=== PATIENT | female | born 1970 | race American Indian/Alaskan Native ===

== ENCOUNTER 2016-11-09 11:05 | Emergency (ER) | payer MEDICAID ==
[2016-11-09] MEDS ORDERED: DUONEB *Not for PRN Use IH ONE (18:50)
[2016-11-09] MEDS ORDERED: DELTASONE PO ONE (18:51)
--- NOTE | 2016-11-09 18:51 | Emergency Department Report ---
ED Asthma HPI - General Chief Complaint: Upper Respiratory Infection Stated Complaint: ASTHMA Time Seen by Provider: 11/09/16 18:17 Source: patient Mode of arrival: Ambulatory Limitations: No Limitations - History of Present Illness Initial Comments: 46-year-old female past medical history asthma presents for complaint of running out of her asthma medicines including Henderson cast and Ventolin inhaler. She states she has been wheezing slightly since early this morning. Patient states her last menstrual period was on 10/26 but is concerned she may be and is requesting a test. Patient is awake alert and oriented 3 agitated and is verbally abusive during clinical exam. States that she is upset that she has been waiting for a long time to be evaluated. I reassured the patient that I will do my best to help her however patient is verbally irate. Accompanied by daughter at bedside MD Complaint: "asthma attack", wheezing Severity: mild Context: none known Associated Symptoms: none Treatments Prior to Arrival: inhaled bronchodilator - Related Data Current Asthma Therapy: none Previous Rx's Medication Instructions Recorded Last Taken Type ALBUTEROL Inhaler [ProAir HFA 2 puff IH QID PRN #1 inhalation 11/09/16 Unknown Rx Inhaler] Montelukast [Singulair] 10 mg PO QPM #30 tablet 11/09/16 Unknown Rx predniSONE [Deltasone] 40 mg PO QDAY #10 tab 11/09/16 Unknown Rx ED Review of Systems ROS: Stated complaint: ASTHMA Other details as noted in HPI Constitutional: denies: chills, fever Eyes: denies: eye pain, eye discharge, vision change ENT: denies: ear pain, throat pain Respiratory: denies: cough, shortness of breath, wheezing Cardiovascular: denies: chest pain, palpitations Endocrine: no symptoms reported Gastrointestinal: denies: abdominal pain, nausea, diarrhea Genitourinary: denies: urgency, dysuria, discharge Musculoskeletal: denies: back pain, joint swelling, arthralgia Skin: denies: rash, lesions Neurological: denies: headache, weakness, paresthesias Psychiatric: denies: anxiety, depression Hematological/Lymphatic: denies: easy bleeding, easy bruising ED Past Medical Hx - Past Medical History Hx Asthma: Yes - Surgical History Past Surgical History?: Yes Additional Surgical History: - Social History Smoking Status: Never Smoker Substance Use Type: None - Medications Home Medications: Home Medications Medication Instructions Recorded Confirmed Last Taken Type ALBUTEROL Inhaler [ProAir HFA 2 puff IH QID PRN #1 inhalation 11/09/16 Unknown Rx Inhaler] Montelukast [Singulair] 10 mg PO QPM #30 tablet 11/09/16 Unknown Rx predniSONE [Deltasone] 40 mg PO QDAY #10 tab 11/09/16 Unknown Rx ED Physical Exam - General Limitations: No Limitations General appearance: alert, in no apparent distress - Head Head exam: Present: atraumatic, normocephalic - Eye Eye exam: Present: normal appearance, PERRL, EOMI - ENT ENT exam: Present: mucous membranes moist - Neck Neck exam: Present: normal inspection - Respiratory Respiratory exam: Present: wheezes (mild wheezing right lower lung field). Absent: respiratory distress - Cardiovascular Cardiovascular Exam: Present: regular rate, normal rhythm. Absent: systolic murmur, diastolic murmur, rubs, gallop - GI/Abdominal GI/Abdominal exam: Present: soft, normal bowel sounds - Extremities Exam Extremities exam: Present: normal inspection - Back Exam Back exam: Present: normal inspection - Neurological Exam Neurological exam: Present: alert, oriented X3 - Psychiatric Psychiatric exam: Present: normal affect, normal mood - Skin Skin exam: Present: warm, dry, intact, normal color. Absent: rash ED Course Vital Signs 11/09/16 11:45 Temperature 98 F Pulse Rate 75 Respiratory 22 Rate Blood Pressure 121/76 O2 Sat by Pulse 100 Oximetry ED Medical Decision Making - Medical Decision Making A/P: Asthma exacerbation 1-refill on albuterol inhaler 2-prednisone course 3- test negative 4- follow-up with primary care 5- vital signs normal before discharge, o2 sat 100% Critical care attestation.: If time is entered above; I have spent that time in minutes in the direct care of this critically ill patient, excluding procedure time. ED Disposition Clinical Impression: test negative Asthma Qualifiers: Asthma severity: mild Asthma persistence: intermittent Asthma complication type : with acute exacerbation Qualified Code(s): J45.21 - Mild intermittent asthma with (acute) exacerbation Disposition: DC-01 TO HOME OR SELFCARE Is pt being admited?: No Does the pt Need Aspirin: No Condition: Stable Instructions: Asthma (ED) Prescriptions: ALBUTEROL Inhaler [ProAir HFA Inhaler] 2 puff IH QID PRN #1 inhalation PRN Reason: Shortness Of Breath Montelukast [Singulair] 10 mg PO QPM #30 tablet predniSONE [Deltasone] 40 mg PO QDAY #10 tab Referrals: [facility] [Outside] - 3-5 Days [facility] [Provider Group] - 3-5 Days Forms: Accompanied Note, Work/School Release Form(ED) Time of Disposition: 19:43
[2016-11-09 22:25] VITALS: BP 120/78
== END 2016-11-09 19:48 | disposition home or self-care (01) ==
LOC: ED 11:05
DX: Z32.02 Encounter for pregnancy test, result negative (principal); J45.21 Mild intermittent asthma with (acute) exacerbation
CPT/HCPCS: 81025; 94640; 99283; J7512

== ENCOUNTER 2017-09-08 21:15 | Emergency (ER) | payer MEDICAID, OTHER ==
[2017-09-08 22:11] VITALS: BP 117/67
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
[2017-09-09] MEDS ORDERED: PROVENTIL IH ONE ×2 (00:40→00:41)
== END 2017-09-09 01:20 | disposition left against medical advice (07) ==
LOC: ED 21:15
DX: M54.9 Dorsalgia, unspecified (principal); R51 Headache; Z53.21 Procedure and treatment not carried out due to patient leaving prior to being seen by health care provider
CPT/HCPCS: 70450

== ENCOUNTER 2021-08-26 20:10 | Emergency (ER) | payer SELFPAY ==
[2021-08-26] MEDS ORDERED: ALBUTEROL 2.5 MG/3 ML NEBU IH ONE (20:54)
[2021-08-26] MEDS ORDERED: IPRATROPIUM 0.02% NEBU 2.5 ML IH ONE (20:55)
[2021-08-26] MEDS ORDERED: dexAMETHasone 4 MG/ML VIAL IV ONE (21:01)
[2021-08-26] MEDS ORDERED: ACETAMINOPEN W/CODEINE 120-12MG ORAL LIQD 5 ML PO STA (21:01)
[2021-08-26] MEDS ORDERED: diphenhydrAMINE 50 MG/ML VIAL IV STA (21:01)
--- NOTE | 2021-08-26 21:03 | Emergency Department Report ---
ED Asthma HPI - General Chief Complaint: Adult Asthma Stated Complaint: ASTHMA ATTACK Time Seen by Provider: 08/26/21 21:00 Source: patient Mode of arrival: Ambulatory Limitations: No Limitations - History of Present Illness MD Complaint: "asthma attack", wheezing -: Gradual, days(s) (3) Asthma History: childhood onset Severity: moderate Context: other Associated Symptoms: dry cough, other (aching to abdomin and ribs due to exce ssive cough). denies: chest pain - Related Data Previous Rx's Medication Instructions Recorded Last Taken Type Albuterol Mdi (or & Nicu Only) 2 puff IH QID PRN #1 inhalation 11/09/16 Unknown Rx [ProAir HFA Inhaler] Montelukast [Singulair] 10 mg PO QPM #30 tablet 11/09/16 Unknown Rx predniSONE [Deltasone] 40 mg PO QDAY #10 tab 11/09/16 Unknown Rx Albuterol Mdi (or & Nicu Only) 2 puff IH QID PRN #1 inhalation 08/27/21 Unknown Rx [ProAir HFA Inhaler] Montelukast [Singulair] 10 mg PO QPM #14 tablet 08/27/21 Unknown Rx predniSONE [Deltasone] 50 mg PO QDAY #5 tab 08/27/21 Unknown Rx Allergies Allergy/AdvReac Type Severity Reaction Status Date / Time No Known Allergies Allergy Verified 08/26/21 20:48 ED Review of Systems ROS: Stated complaint: ASTHMA ATTACK Other details as noted in HPI Comment: All other systems reviewed and negative ED Past Medical Hx - Past Medical History Hx Asthma: Yes - Surgical History Additional Surgical History: - Social History Smoking Status: Former Smoker Substance Use Type: None - Medications Home Medications: Home Medications Medication Instructions Recorded Confirmed Last Taken Type Albuterol Mdi (or & Nicu Only) 2 puff IH QID PRN #1 inhalation 11/09/16 Unknown Rx [ProAir HFA Inhaler] Montelukast [Singulair] 10 mg PO QPM #30 tablet 11/09/16 Unknown Rx predniSONE [Deltasone] 40 mg PO QDAY #10 tab 11/09/16 Unknown Rx Albuterol Mdi (or & Nicu Only) 2 puff IH QID PRN #1 inhalation 08/27/21 Unknown Rx [ProAir HFA Inhaler] Montelukast [Singulair] 10 mg PO QPM #14 tablet 08/27/21 Unknown Rx predniSONE [Deltasone] 50 mg PO QDAY #5 tab 08/27/21 Unknown Rx ED Physical Exam - General Limitations: No Limitations General appearance: alert, in distress (mild and tearful) - Head Head exam: Present: atraumatic, normocephalic - Eye Eye exam: Present: normal appearance, PERRL - ENT ENT exam: Present: normal exam, normal orophraynx, mucous membranes moist, TM's normal bilaterally - Neck Neck exam: Present: normal inspection, full ROM - Respiratory Respiratory exam: Present: normal lung sounds bilaterally, wheezes. Absent: respiratory distress, rales, rhonchi, chest wall tenderness, accessory muscle use, decreased breath sounds - Cardiovascular Cardiovascular Exam: Present: regular rate, normal rhythm. Absent: tachycardia, irregular rhythm, systolic murmur, diastolic murmur, rubs, gallop - GI/Abdominal GI/Abdominal exam: Present: soft, normal bowel sounds - Extremities Exam Extremities exam: Present: normal inspection - Back Exam Back exam: Present: normal inspection - Neurological Exam Neurological exam: Present: alert, oriented X3, CN II-XII intact, normal gait - Psychiatric Psychiatric exam: Present: normal affect, normal mood - Skin Skin exam: Present: warm, dry, intact, normal color. Absent: rash ED Course Vital Signs 08/26/21 08/27/21 20:47 01:56 Temperature 98.8 F Pulse Rate 73 71 Respiratory 20 14 Rate Blood Pressure 114/77 123/80 [Left] O2 Sat by Pulse 97 98 Oximetry ED Medical Decision Making - Medical Decision Making No altered mental status, saddle respirations, belly breathing or other signs of impending ventilatory failure. No intubations or recent admissions to the hospital for asthma. Unlikely pneumonia, CHF, COPD, GERD Workup Review include a chest x-ray which was normal she also received steroids and albuterol Therapies: Prednisone 50 mg PO. Albuterol nebulizer Reassessment: Patient improved with albuterol and ipratropium in less than 3 hours. Disposition: Discharge home with return precautions. Advised to follow up with primary care physician within next 24-48 hours. Aside from this acute exacerbation patient has been well controlled on baseline home regimen. Rx short steroid course, albuterol, Singulair, Flovent Critical care attestation.: If time is entered above; I have spent that time in minutes in the direct care of this critically ill patient, excluding procedure time. ED Disposition Clinical Impression: Asthma Disposition: 01 HOME / SELF CARE / HOMELESS Is pt being admited?: No Does the pt Need Aspirin: No Condition: Stable Instructions: Asthma, Adult, Asthma (ED) Prescriptions: predniSONE [Deltasone] 50 mg PO QDAY #5 tab Albuterol Mdi (or & Nicu Only) [ProAir HFA Inhaler] 2 puff IH QID PRN #1 inhalation PRN Reason: Shortness Of Breath Montelukast [Singulair] 10 mg PO QPM #14 tablet Referrals: [facility] [Provider Group] - 3-5 Days
--- NOTE | 2021-08-26 21:39 | XRay Report ---
CHEST 1 VIEW 08/26/2021 8:29 PM INDICATION / CLINICAL INFORMATION: sob and wheezing. COMPARISON: None available. FINDINGS: SUPPORT DEVICES: None. HEART / MEDIASTINUM: No significant abnormality. LUNGS / PLEURA: No significant pulmonary abnormality. No significant pleural effusion. No pneumothora x. ADDITIONAL FINDINGS: No significant additional findings. IMPRESSION: 1. No acute abnormality of the chest. Signer Name: Jori Samuel MD Signed: 08/26/2021 9:35 PM Workstation Name: [email or web address]
[2021-08-27 01:57] VITALS: BP 123/80
== END 2021-08-27 01:57 | disposition home or self-care (01) ==
LOC: ED 20:10
DX: J45.909 Unspecified asthma, uncomplicated (principal); Z98.890 Other specified postprocedural states; Z87.891 Personal history of nicotine dependence
CPT/HCPCS: 71045; 94640; 96374; 99283; J1100; J1200

== ENCOUNTER 2021-08-29 22:55 | Emergency (ER) | payer SELFPAY ==
[2021-08-29 23:09] VITALS: BP 113/72
== END 2021-09-02 09:58 | disposition left against medical advice (07) ==
LOC: ED 22:55
DX: J45.909 Unspecified asthma, uncomplicated (principal); Z53.21 Procedure and treatment not carried out due to patient leaving prior to being seen by health care provider

== ENCOUNTER 2021-10-08 08:08 | Emergency (ER) | payer SELFPAY ==
[2021-10-08] MEDS ORDERED: IPRATROPIUM 0.02% NEBU 2.5 ML IH ONE ×2 (08:37→08:57)
[2021-10-08] MEDS ORDERED: ALBUTEROL 2.5 MG/3 ML NEBU IH ONE (08:37)
[2021-10-08] MEDS ORDERED: methylPREDNISolone Sod Succinate 125 MG/2 ML INJ IM ONE (09:25)
--- NOTE | 2021-10-08 09:50 | XRay Report ---
CHEST 2 VIEWS INDICATION / CLINICAL INFORMATION: Asthma. COMPARISON: 08/26/2021 FINDINGS: SUPPORT DEVICES: None. HEART / MEDIASTINUM: No significant abnormality. LUNGS / PLEURA: No significant pulmonary or pleural abnormality. No pneumothorax. ADDITIONAL FINDINGS: No significant additional findings. IMPRESSION: 1. No acute findings. Signer Name: Darius De La Torre MD Signed: 10/08/2021 9:46 AM Workstation Name: [email or web address]
--- NOTE | 2021-10-08 12:04 | Emergency Department Report ---
ED Asthma HPI - General Chief Complaint: Adult Asthma Stated Complaint: ASTHMA ATTACK Time Seen by Provider: 10/08/21 08:55 Source: patient Mode of arrival: Ambulatory Limitations: No Limitations - History of Present Illness Initial Comments: 51-year-old female with history of asthma presents to the emergency department with asthma attack. Patient reports her symptoms started yesterday afternoon, and has not improved with her albuterol inhaler. Has symptoms associated with shortness of breath, tightness in her chest, and cough. She denies fever c hills, no headache dizziness, no nausea vomiting abdominal pain, no swelling to the extremities, no orthopne. States that her asthma is induced by allergies, she thinks is because of the weather changes. Context: allergen exposure Associated Symptoms: dry cough. denies: fever, chest pain, leg edema, syncope Treatments Prior to Arrival: inhaled bronchodilator - Related Data Current Asthma Therapy: inhaled bronchodilator Previous Rx's Medication Instructions Recorded Last Taken Type Albuterol Mdi (or & Nicu Only) 2 puff IH QID PRN #1 inhalation 11/09/16 Unknown Rx [ProAir HFA Inhaler] Montelukast [Singulair] 10 mg PO QPM #30 tablet 11/09/16 Unknown Rx Albuterol Mdi (or & Nicu Only) 2 puff IH QID PRN #1 inhalation 08/27/21 Unknown Rx [ProAir HFA Inhaler] predniSONE [Deltasone] 50 mg PO QDAY #5 tab 08/27/21 Unknown Rx Codeine Phosphate/Guaifenesin 5 ml PO Q6H PRN #100 10/08/21 Unknown Rx [Guaiatussin AC Liquid] Montelukast [Singulair] 10 mg PO QPM #30 tablet 10/08/21 Unknown Rx predniSONE [Deltasone] 40 mg PO QDAY 5 Days #10 tab 10/08/21 Unknown Rx Allergies Allergy/AdvReac Type Severity Reaction Status Date / Time No Known Allergies Allergy Verified 10/08/21 08:37 ED Review of Systems ROS: Stated complaint: ASTHMA ATTACK Other details as noted in HPI Constitutional: denies: chills, fever ENT: denies: throat pain Respiratory: cough, shortness of breath, wheezing. denies: SOB with exertion Cardiovascular: denies: chest pain, palpitations, dyspnea on exertion, orthopnea, edema, syncope Gastrointestinal: denies: abdominal pain, nausea, vomiting Skin: denies: rash, lesions Neurological: denies: headache, weakness, numbness Psychiatric: denies: anxiety, depression ED Past Medical Hx - Past Medical History Hx Asthma: Yes - Surgical History Additional Surgical History: - Social History Smoking Status: Former Smoker Substance Use Type: None - Medications Home Medications: Home Medications Medication Instructions Recorded Confirmed Last Taken Type Albuterol Mdi (or & Nicu Only) 2 puff IH QID PRN #1 inhalation 11/09/16 Unknown Rx [ProAir HFA Inhaler] Montelukast [Singulair] 10 mg PO QPM #30 tablet 11/09/16 Unknown Rx Albuterol Mdi (or & Nicu Only) 2 puff IH QID PRN #1 inhalation 08/27/21 Unknown Rx [ProAir HFA Inhaler] predniSONE [Deltasone] 50 mg PO QDAY #5 tab 08/27/21 Unknown Rx Codeine Phosphate/Guaifenesin 5 ml PO Q6H PRN #100 10/08/21 Unknown Rx [Guaiatussin AC Liquid] Montelukast [Singulair] 10 mg PO QPM #30 tablet 10/08/21 Unknown Rx predniSONE [Deltasone] 40 mg PO QDAY 5 Days #10 tab 10/08/21 Unknown Rx ED Physical Exam - General Limitations: No Limitations General appearance: alert, in no apparent distress - Head Head exam: Present: atraumatic - Eye Eye exam: Present: normal appearance - ENT ENT exam: Present: normal exam, normal orophraynx - Neck Neck exam: Present: normal inspection - Respiratory Respiratory exam: Present: wheezes, other (No distress able to speak in clear sentences.). Absent: respiratory distress, chest wall tenderness - Cardiovascular Cardiovascular Exam: Present: regular rate, normal rhythm - GI/Abdominal GI/Abdominal exam: Present: soft. Absent: distended, guarding - Extremities Exam Extremities exam: Present: normal inspection, full ROM - Back Exam Back exam: Present: normal inspection, full ROM - Neurological Exam Neurological exam: Present: alert, oriented X3, CN II-XII intact. Absent: motor sensory deficit ED Course Vital Signs 10/08/21 08:36 Temperature 98.5 F Pulse Rate 81 Respiratory 18 Rate Blood Pressure 111/73 [Left] O2 Sat by Pulse 99 Oximetry ED Medical Decision Making - Medical Decision Making 51-year-old female history of asthma, induced by allergies, has not been taking her montelukast. Symptoms has resolved with nebulizer treatment and steroids, on reexamination her lungs are clear no wheezing, vital signs are stable, ambulating steadily, she denies any pain or discomfort. Chest x-ray is negative for any acute infectious inflammatory processes will discharge home with albuterol, steroids, and montelukast. Have also given a referral to a new PCP/[facility] for Patient remained stable nontoxic-appearing, afebrile, ambulating steadily without assistance. Gone over ED findings with patient as well as plan for follow-up. Also discussed return precautions with patient, all questions and concerns addressed. Patient is stable to be discharged follow-up outpatient. Audio voice dictation device used, hence the chart might contain some dictation errors, mispronunciations, wrong spelling and wrong verbiage. Critical care attestation.: If time is entered above; I have spent that time in minutes in the direct care of this critically ill patient, excluding procedure time. ED Disposition Clinical Impression: Asthma exacerbation attacks Disposition: 01 HOME / SELF CARE / HOMELESS Is pt being admited?: No Does the pt Need Aspirin: No Condition: Stable Instructions: Bronchospasm, Adult, Asthma Attack Prescriptions: predniSONE [Deltasone] 40 mg PO QDAY 5 Days #10 tab Codeine Phosphate/Guaifenesin [Guaiatussin AC Liquid] 5 ml PO Q6H PRN #100 PRN Reason: Cough Montelukast [Singulair] 10 mg PO QPM #30 tablet Forms: Work/School Release Form(ED)
[2021-10-08 12:19] VITALS: BP 128/80
== END 2021-10-08 12:19 | disposition home or self-care (01) ==
LOC: ED 08:08
DX: J45.901 Unspecified asthma with (acute) exacerbation (principal); Z87.891 Personal history of nicotine dependence; Z98.890 Other specified postprocedural states; Z79.899 Other long term (current) drug therapy
CPT/HCPCS: 71046; 94640; 96372; 99283; J2930